=== PATIENT | female | born 1985 | race African-American/Black ===

== ENCOUNTER 2020-04-21 15:06 | Inpatient (IN) ==
[2020-04-21] MEDS ORDERED: LACTATED RINGERS 250 ML IV ONE (16:02)
[2020-04-21] MEDS ORDERED: MEPERIDINE 50 MG/1 ML VIAL IV PRN (16:02)
[2020-04-21] MEDS ORDERED: ONDANSETRON 4 MG/2 ML VIAL IV PRN (16:02)
[2020-04-21] MEDS ORDERED: AMPICILLIN INJ 2,000 MG in SODIUM CHLORIDE 0.9% 100 ML IV ONE (16:05)
[2020-04-21 16:23] LABS: Basophils % 0.3 % (0.0-0.8); Eosinophils # 0.1 10*3/uL (0.0-0.87); Eosinophils % 1.1 % (0.00-10.9); Hematocrit 32.4 VOL% (35.7-47.0); Hemoglobin 11.4 GM/DL (12.0-16.0); Immature Granulocytes % 0.4 %; Immature Granulocytes Absolute 0.03 #; Lymphocytes # 1.9 10*3/uL (1.4-4.0); Lymphocytes % 25.9 % (21.3-54.2); Mean Corpuscular HGB Conc 35.2 GM/DL (32-36); Mean Corpuscular Volume 84.6 FL (87-102); Mean Platelet Volume 10.4 FL (9.6-12.0); Neutrophils % 68.3 % (38.7-73.9); Platelet Count 233 T/CUMM (130-400); Red Blood Count 3.83 MC/CUMM (3.8-5.5); Red Cell Distribution Width 12.7 % (9.3-17.3); White Blood Count 7.3 T/CUMM (4-12)
[2020-04-21] MEDS ORDERED: BETAMETH SODIUM PHOS/ACETATE 30 MG/5 ML VIAL IM ONE (16:26)
[2020-04-21] MEDS: AMPICILLIN INJ 1,000 MG in SODIUM CHLORIDE 0.9% 100 ML IV SCH (22:10)
[2020-04-21] MEDS: BUTORPHANOL 2 MG/ML VIAL IV PRN (23:10)
[2020-04-22] MEDS: BUTORPHANOL 2 MG/ML VIAL IV PRN (03:40)
[2020-04-22] MEDS: AMPICILLIN INJ 1,000 MG in SODIUM CHLORIDE 0.9% 100 ML IV SCH (03:49)
[2020-04-22] MEDS ORDERED: hydrOXYzine HCL 25 MG/1 ML VIAL IM PRN (05:23)
[2020-04-22] MEDS ORDERED: CITRIC ACID/SODIUM CITRATE 30 ML UDCUP PO ONE (05:23)
[2020-04-22] MEDS ORDERED: ePHEDrine 50 MG/ML VIAL IV PRN (05:23)
[2020-04-22] MEDS ORDERED: FAMOTIDINE 20 MG/2 ML VIAL IV ONE (05:23)
[2020-04-22] MEDS ORDERED: ONDANSETRON 4 MG/2 ML VIAL IV ONE (05:23)
[2020-04-22] MEDS ORDERED: PROMETHAZINE 25 MG/1 ML VIAL IM ONE (05:23)
[2020-04-22] MEDS ORDERED: diphenhydrAMINE 50 MG/1 ML VIAL IV PRN ×2 (05:23)
[2020-04-22] MEDS ORDERED: NALOXONE 0.4 MG/ML VIAL IV PRN (05:23)
[2020-04-22] MEDS ORDERED: CITRIC ACID/SODIUM CITRATE 30 ML UDCUP ONE (05:27)
[2020-04-22] MEDS ORDERED: fentaNYL 2 MCG/ROPIV 0.2% EPID 100 ML EPIDURAL SCH (05:30)
[2020-04-22] MEDS ORDERED: OXYTOCIN/LR 20 UNIT/1,000 ML BAG IV ONE ×2 (06:28→09:40)
[2020-04-22] MEDS ORDERED: miSOPROStoL 200 MCG TABLET ONE (06:29)
[2020-04-22] MEDS ORDERED: METHYLERGONOVINE 0.2 MG/1 ML AMP ONE (06:29)
[2020-04-22] MEDS ORDERED: CARBOPROST TROMETHAMINE 250 MCG/ML AMP IM ONE (06:29)
[2020-04-22 07:07] LABS: Cord Venous Blood HCO3 18.6 MMOL/L; Cord Venous Blood PCO2 37.3 MMHG; Cord Venous Blood PO2 38.3
[2020-04-22 07:29] LABS: Basophils % 0.1 % (0.0-0.8); Hematocrit 30.5 VOL% (35.7-47.0); Hemoglobin 10.6 GM/DL (12.0-16.0); Immature Granulocytes % 0.5 %; Immature Granulocytes Absolute 0.04 #; Lymphocytes # 0.9 10*3/uL (1.4-4.0); Mean Corpuscular HGB Conc 34.8 GM/DL (32-36); Mean Corpuscular Volume 86.4 FL (87-102); Mean Platelet Volume 10.4 FL (9.6-12.0); Monocytes % 2.1 % (1.7-12.7); Neutrophils % 86.3 % (38.7-73.9); Platelet Count 203 T/CUMM (130-400); Red Blood Count 3.53 MC/CUMM (3.8-5.5); Red Cell Distribution Width 12.7 % (9.3-17.3); White Blood Count 8.1 T/CUMM (4-12)
[2020-04-22] MEDS: LACTATED RINGERS 1,000 ML IV SCH ×2 (08:06→08:08)
[2020-04-22] MEDS ORDERED: DIPH/TET/ACEL PERT BOOSTER VACCINE 0.5 ML VIAL IM ONE (09:40)
[2020-04-22] MEDS ORDERED: LANOLIN 50% CREAM 0.3 OZ TUBE TOP PRN (09:40)
[2020-04-22] MEDS ORDERED: MEASLES/MUMPS/RUBELLA VACCINE 0.5 ML VIAL SUBCUT ONE (09:40)
[2020-04-22] MEDS ORDERED: RHO(D) IMMUNE GLOBULIN 300 MCG SYRINGE IM ONE (09:40)
[2020-04-22] MEDS ORDERED: HYDROCORTISONE 2.5% RECTAL CREAM 30 GM TUBE TOP PRN (09:40)
[2020-04-22] MEDS ORDERED: ACETAMINOPHEN 325 MG TABLET PO PRN (09:40)
[2020-04-22] MEDS ORDERED: BISACODYL 10 MG SUPP RECTAL PRN (09:40)
[2020-04-22] MEDS ORDERED: WITCH HAZEL PADS 100/JAR TOP PRN (09:40)
[2020-04-22] MEDS ORDERED: oxyCODONE/ACETAMINOPHEN 5-325 MG TABLET PO PRN (09:40)
[2020-04-22] MEDS ORDERED: BENZOCAINE 20%/MENTHOL 0.5% SPRAY 56 GM CAN TOP PRN (09:40)
[2020-04-22] MEDS ORDERED: ONDANSETRON 4 MG/2 ML VIAL IV PRN (09:40)
[2020-04-22] MEDS: IBUPROFEN 800 MG TABLET PO PRN (09:43)
[2020-04-22] MEDS: oxyCODONE/ACETAMINOPHEN 5-325 MG TABLET PO PRN ×2 (10:49→20:27)
[2020-04-22] MEDS: DOCUSATE SODIUM 100 MG CAPSULE PO SCH (12:20)
[2020-04-22] MEDS: MULTIVITAMIN (PRENATAL) TABLET PO SCH (12:20)
[2020-04-23 06:26] LABS: Basophils % 0.3 % (0.0-0.8); Eosinophils # 0.1 10*3/uL (0.0-0.87); Eosinophils % 0.8 % (0.00-10.9); Hematocrit 29.7 VOL% (35.7-47.0); Hemoglobin 10.3 GM/DL (12.0-16.0); Immature Granulocytes % 0.6 %; Immature Granulocytes Absolute 0.07 #; Mean Corpuscular HGB Conc 34.7 GM/DL (32-36); Mean Corpuscular Volume 86.6 FL (87-102); Mean Platelet Volume 10.8 FL (9.6-12.0); Monocytes % 4.8 % (1.7-12.7); Neutrophils % 68.5 % (38.7-73.9); Platelet Count 207 T/CUMM (130-400); Red Blood Count 3.43 MC/CUMM (3.8-5.5); Red Cell Distribution Width 12.8 % (9.3-17.3); White Blood Count 11.9 T/CUMM (4-12)
[2020-04-23] MEDS ORDERED: oxyCODONE/ACETAMINOPHEN 5-325 MG TABLET PO PRN ×2 (07:37)
[2020-04-23] MEDS: DOCUSATE SODIUM 100 MG CAPSULE PO SCH (07:43)
[2020-04-23] MEDS: IBUPROFEN 800 MG TABLET PO PRN (07:44)
[2020-04-23] MEDS: MULTIVITAMIN (PRENATAL) TABLET PO SCH (07:44)
[2020-04-23 08:02] VITALS: BP 120/66
== END 2020-04-23 13:30 | disposition home or self-care (01) | DRG 560 ==
LOC: N.LD 15:06 → N.LDOUT 15:06 → N.LD 18:51 → N.OB 04-23 07:20
PROVIDERS: ADMIT Obstetrics & Gynecology; ATTEND Obstetrics & Gynecology

== ENCOUNTER 2021-05-25 13:18 | Inpatient (IN) ==
[2021-05-25 13:46] LABS: Bilirubin,Urine Negative (Negative); Blood, Urine Negative (Negative); Glucose,Urine (UA) Negative (Negative); Ketones,Urine 5 mg/dL (Negative); Nitrite,Urine Negative (Negative); Protein,Urine 30 MG/DL; Urine Appearance CLOUDY (Clear); Urine Color Amber (Yellow); Urine Specific Gravity 1.019 (1.001-1.035)
[2021-05-25 13:50] LABS: Bacteria,Urine Few /HPF (Few); Mucus,Urine Moderate /LPF (Occasional); Squamous Epithelial Cell,Urine Many /HPF (0-10)
[2021-05-25] MEDS ORDERED: ONDANSETRON 4 MG/2 ML VIAL IV PRN (15:14)
[2021-05-25] MEDS ORDERED: LACTATED RINGERS 1,000 ML IV ONE (15:14)
[2021-05-25] MEDS ORDERED: ePHEDrine 50 MG/ML VIAL IV PRN (15:21)
[2021-05-25] MEDS ORDERED: ONDANSETRON 4 MG/2 ML VIAL IV ONE (15:21)
[2021-05-25] MEDS ORDERED: hydrOXYzine HCL 25 MG/1 ML VIAL IM PRN (15:21)
[2021-05-25] MEDS ORDERED: CITRIC ACID/SODIUM CITRATE 30 ML UDCUP PO ONE (15:21)
[2021-05-25] MEDS ORDERED: diphenhydrAMINE 50 MG/1 ML VIAL IV PRN ×2 (15:21)
[2021-05-25] MEDS ORDERED: PROMETHAZINE 25 MG/1 ML VIAL IM ONE (15:21)
[2021-05-25] MEDS ORDERED: NALOXONE 0.4 MG/ML VIAL IV PRN (15:21)
[2021-05-25] MEDS ORDERED: FAMOTIDINE 20 MG/2 ML VIAL IV ONE (15:21)
[2021-05-25] MEDS ORDERED: LACTATED RINGERS 1,000 ML IV SCH (15:30)
[2021-05-25] MEDS ORDERED: fentaNYL 2 MCG/ROPIV 0.2% EPID 100 ML EPIDURAL SCH (15:30)
[2021-05-25 15:45] LABS: Basophils % 0.3 % (0.0-0.8); Eosinophils # 0.1 10*3/uL (0.0-0.87); Eosinophils % 1.3 % (0.00-10.9); Hematocrit 34.3 VOL% (35.7-47.0); Hemoglobin 11.6 GM/DL (12.0-16.0); Immature Granulocytes % 0.5 %; Immature Granulocytes Absolute 0.04 #; Lymphocytes # 2.1 10*3/uL (1.4-4.0); Lymphocytes % 23.5 % (21.3-54.2); Mean Corpuscular HGB Conc 33.8 GM/DL (32-36); Mean Corpuscular Volume 84.3 FL (87-102); Mean Platelet Volume 10.8 FL (9.6-12.0); Monocytes % 3.8 % (1.7-12.7); Neutrophils % 70.6 % (38.7-73.9); Platelet Count 215 T/CUMM (130-400); Red Blood Count 4.07 MC/CUMM (3.8-5.5); Red Cell Distribution Width 12.8 % (9.3-17.3); White Blood Count 8.7 T/CUMM (4-12)
[2021-05-25 16:05] LABS: Alanine Aminotransferase < 9 U/L (13-56); Albumin 2.7 G/DL (3.4-5.0); Alkaline Phosphatase 128 U/L (45-117); Aspartate Amino Transferase 9 U/L (0-37); Blood Urea Nitrogen 6 MG/DL (7-18); Calcium 8.7 MG/DL (8.5-10.1); Carbon Dioxide 19 MMOL/L (21-32); Estimated Glom Filtration Rate 165 ML/MIN; Glucose 74 MG/DL (74-106); Potassium 3.6 MMOL/L (3.5-5.1); Sodium 136 MMOL/L (136-145); Total Protein 7.6 G/DL (6.4-8.2)
[2021-05-25] MEDS ORDERED: TRANEXAMIC ACID 1,000 MG/10 ML VIAL ONE (19:04)
[2021-05-25] MEDS ORDERED: miSOPROStoL 200 MCG TABLET ONE (19:04)
[2021-05-25] MEDS ORDERED: SODIUM CHLORIDE 0.9% 0 ML IV ONE (19:04)
[2021-05-25] MEDS ORDERED: CARBOPROST TROMETHAMINE 250 MCG/ML AMP IM ONE (19:05)
[2021-05-25] MEDS ORDERED: METHYLERGONOVINE 0.2 MG/1 ML AMP ONE (19:05)
[2021-05-25 19:18] LABS: Bilirubin,Urine Negative (Negative); Blood, Urine Negative (Negative); Glucose,Urine (UA) Negative (Negative); Ketones,Urine 20 mg/dL (Negative); Nitrite,Urine Negative (Negative); Protein,Urine Negative; Urine Appearance CLEAR (Clear); Urine Color Straw (Yellow); Urine Specific Gravity 1.005 (1.001-1.035); Urine Urobilinogen < 2.0 EU/DL (<2.0)
[2021-05-25 19:27] LABS: Mucus,Urine Occasional /LPF (Occasional); Squamous Epithelial Cell,Urine Occasional /HPF (0-10)
[2021-05-25] MEDS ORDERED: OXYTOCIN/LR 20 UNIT/1,000 ML BAG IV SCH (20:00)
[2021-05-25 21:40] LABS: Cord Arterial Blood HCO3 20.7 MMOL/L
[2021-05-25 21:43] LABS: Cord Venous Blood HCO3 22.2 MMOL/L; Cord Venous Blood PCO2 33.5 MMHG; Cord Venous Blood PO2 35.7
[2021-05-26] MEDS ORDERED: oxyCODONE/ACETAMINOPHEN 5-325 MG TABLET PO PRN (00:55)
[2021-05-26] MEDS: oxyCODONE/ACETAMINOPHEN 5-325 MG TABLET PO PRN ×5 (01:03→21:51)
[2021-05-26] MEDS: IBUPROFEN 800 MG TABLET PO PRN ×3 (03:39→18:18)
[2021-05-26 05:49] LABS: Basophils % 0.4 % (0.0-0.8); Eosinophils # 0.1 10*3/uL (0.0-0.87); Hematocrit 30.2 VOL% (35.7-47.0); Immature Granulocytes % 0.3 %; Immature Granulocytes Absolute 0.03 #; Lymphocytes # 2.2 10*3/uL (1.4-4.0); Lymphocytes % 23.1 % (21.3-54.2); Mean Corpuscular HGB Conc 33.1 GM/DL (32-36); Mean Corpuscular Volume 85.6 FL (87-102); Mean Platelet Volume 11.4 FL (9.6-12.0); Monocytes % 5.8 % (1.7-12.7); Neutrophils % 69.4 % (38.7-73.9); Platelet Count 186 T/CUMM (130-400); Red Blood Count 3.53 MC/CUMM (3.8-5.5); Red Cell Distribution Width 12.8 % (9.3-17.3); White Blood Count 9.7 T/CUMM (4-12)
[2021-05-26] MEDS: DOCUSATE SODIUM 100 MG CAPSULE PO SCH ×2 (08:34→21:50)
[2021-05-26] MEDS ORDERED: DIPH/TET/ACEL PERT BOOSTER VACCINE 0.5 ML VIAL IM ONE (10:23)
[2021-05-26] MEDS ORDERED: HYDROCORTISONE 2.5% RECTAL CREAM 30 GM TUBE TOP PRN (10:23)
[2021-05-26] MEDS ORDERED: ACETAMINOPHEN 325 MG TABLET PO PRN (10:23)
[2021-05-26] MEDS ORDERED: LANOLIN 50% CREAM 0.3 OZ TUBE TOP PRN (10:23)
[2021-05-26] MEDS ORDERED: WITCH HAZEL PADS 100/JAR TOP PRN (10:23)
[2021-05-26] MEDS ORDERED: BISACODYL 10 MG SUPP RECTAL PRN (10:23)
[2021-05-26] MEDS ORDERED: BENZOCAINE 20%/MENTHOL 0.5% SPRAY 56 GM CAN TOP PRN (10:23)
[2021-05-26] MEDS: FERROUS SULFATE 325 MG TABLET PO SCH (21:50)
[2021-05-27] MEDS: IBUPROFEN 800 MG TABLET PO PRN ×2 (00:33→06:40)
[2021-05-27] MEDS: oxyCODONE/ACETAMINOPHEN 5-325 MG TABLET PO PRN ×2 (04:06→11:36)
[2021-05-27] MEDS: DOCUSATE SODIUM 100 MG CAPSULE PO SCH (08:40)
[2021-05-27] MEDS: FERROUS SULFATE 325 MG TABLET PO SCH (08:40)
[2021-05-27 10:02] VITALS: BP 124/78
== END 2021-05-27 15:16 | disposition home or self-care (01) | DRG 560 ==
LOC: N.LDOUT 13:18 → N.LD 13:20 → N.OB 05-26 00:40
PROVIDERS: ADMIT Obstetrics & Gynecology; ATTEND Obstetrics & Gynecology